=== PATIENT | female | born 1955 | race Caucasian/White ===

== ENCOUNTER 2017-05-28 08:00 | Outpatient (CLI) | payer BC, OTHER ==
[2017-05-28 18:01] LABS: ALBUMIN 4.4 g/dL (3.2-5.5); ALKALINE PHOSPHATASE 46 IU/L (42-121); ALT ALANINE AMINOTRANSFERASE 23 IU/L (10-60); AST ASPARTATE AMINOTRANSFERASE 24 IU/L (10-42); BILIRUBIN,TOTAL 0.3 mg/dL (0.2-1.0); TOTAL PROTEIN 7.7 g/dL (6.7-8.2)
[2017-05-28 18:33] LABS: BILIRUBIN,DIRECT < 0.1 mg/dL (0.1-0.5)
== END 2017-05-28 08:01 | disposition home or self-care (01) ==
LOC: LAB.F 08:00
PROVIDERS: ATTEND Nurse Practitioner
DX: Z79.899 Other long term (current) drug therapy (principal)
CPT/HCPCS: 36415; 80076

== ENCOUNTER 2017-10-15 08:36 | Outpatient (CLI) | payer OTHER ==
--- NOTE | 2017-10-16 10:03 | Mammography Report ---
Procedure Date: 10/15/2017 Accession Number: [id number] / [id number] Procedure: MGS - Screening Mammo Dig Bilat CPT Code: FULL RESULT: EXAM: Screening Mammo Dig Bilat DATE: 10/15/2017 8:52 AM CLINICAL HISTORY: Routine screening TECHNIQUE: Bilateral CC and MLO views were obtained. COMPARISON: 08/05/2014, 07/18/2013, 07/30/2011, 07/09/2011 and 05/21/2010 FINDINGS: There are scattered fibroglandular densities. No significant interval change. No suspicious masses, clustered microcalcifications, skin thickening, or regions of architectural distortion are identified. IMPRESSION: Negative examination RECOMMENDATION: Routine annual screening unless otherwise clinically indicated. BIRADS CATEGORY 1: Negative STANDARD QUALIFYING STATEMENTS: 1. This examination was reviewed with the aid of Computer-Aided Detection (CAD). 2. A negative or benign imaging report should not delay biopsy if clinically suspicious findings are present. Consider surgical consultation if warrented. More than 5% of cancers are not identified by imaging. 3. Dense breasts may obscure an underlying neoplasm.
== END 2017-10-15 08:37 | disposition home or self-care (01) ==
LOC: DI.S 08:36
PROVIDERS: ATTEND Internal Medicine
DX: Z12.31 Encounter for screening mammogram for malignant neoplasm of breast (principal)
CPT/HCPCS: 77067

== ENCOUNTER 2019-01-25 14:20 | Outpatient (CLI) | payer BC ==
--- NOTE | 2019-01-26 07:58 | Mammography Report ---
Reason: SCREENING MAMMO Z12.31 Procedure Date: 01/25/2019 Accession Number: [id number] / [id number] Procedure: MGS - Screening Mammo Dig Bilat CPT Code: FULL RESULT: EXAM: Screening Mammo Dig Bilat DATE: 01/25/2019 2:40 PM CLINICAL HISTORY: Screening TECHNIQUE: (B) - Bilateral CC and MLO views were obtained. COMPARISON: 10/15/2017, 08/06/2015 PARENCHYMAL PATTERN: (A) - The breasts demonstrate scattered fibroglandular densities bilaterally. FINDINGS: There are no suspicious masses, calcifications, or areas of distortion. IMPRESSION: Negative examination. BI-RADS category 1. RECOMMENDATION: (ANNUAL) - Recommend routine annual screening mammography. BI-RADS CATEGORY: (1) - Negative. STANDARD QUALIFYING STATEMENTS: 1. This examination was not reviewed with the aid of Computer-Aided Detection (CAD). 2. A negative or benign imaging report should not preclude biopsy if clinically suspicious findings are present. 3. Dense breasts may obscure an underlying neoplasm. 4. This examination was reviewed without the aid of 3D breast imaging (tomosynthesis).
== END 2019-01-25 14:21 | disposition home or self-care (01) ==
LOC: DI.S 14:20
DX: Z12.31 Encounter for screening mammogram for malignant neoplasm of breast (principal)
CPT/HCPCS: 77067

== ENCOUNTER 2020-06-12 12:51 | Outpatient (CLI) | payer OTHER ==
--- NOTE | 2020-06-13 13:48 | Mammography Report ---
BILATERAL DIGITAL SCREENING MAMMOGRAM 3D/2D: 06/12/2020 CLINICAL: Routine screening. Comparison is made to exams dated: 01/25/2019 mammogram, 10/15/2017 mammogram, 08/06/2015 mammogram, an d 07/18/2013 mammogram - [facility]. The tissue of both breasts is predominantly fa tty. No significant masses, calcifications, or other findings are seen in either breast. There has been no significant interval change. IMPRESSION: NEGATIVE There is no mammographic evidence of malignancy. A 1 year screening mammogram is recommended. This exam was interpreted at Station ID: [id number]. NOTE: For mammograms, a report in lay terms will be sent to the patient. Approximately 15% of breast malignancies will not be visualized mammographically. In the management of a palpable breast mass, a negative mammogram must not discourage biopsy of a clinically suspicious lesion. Electronically Signed By: Venkatesh Valentin acr/penrad:06/12/2020 13:33:32 ACR BI-RADS Category 1: Negative 3341F PARENCHYMAL PATTERN: (F) - The breast(s) demonstrate(s) diffuse fatty replacement. BI-RADS CATEGORY: (1) - 1 RECOMMENDATION: (ANNUAL) - Recommend routine annual screening mammography. [id number] 1 year screening LATERALITY: (B)
== END 2020-06-12 12:52 | disposition home or self-care (01) ==
LOC: DI.S 12:51
PROVIDERS: ATTEND Internal Medicine
DX: Z12.31 Encounter for screening mammogram for malignant neoplasm of breast (principal)

== ENCOUNTER 2020-09-10 11:43 | Emergency (ER) | payer OTHER ==
--- OUTSIDE RECORDS SUMMARY | 2020-09-10 11:46 | EXTERNAL MEDICAL SUMMARY RPT | Continuity of Care Document ---
:1955 Demographics Phone Unavailable Preferred Language Unknown Marital Status Unknown Rastafarian Affiliation Unknown Race Unknown Ethnic Group Unknown Author Organization [place] Address [address] [phone] Phone Care Team Providers Name Role Phone PA-C Unavailable Unavailable Medications date description facility [id number] CELECOXIB All [id number] HYDROCHLOROTHIAZIDE All 20200910 FLUTICASONE FUROATE All 20200910 MONTELUKAST SODIUM All 20200910 ATENOLOL All [id number] BECLOMETHASONE DIPROP HFA All 20200910 BECLOMETHASONE DIPROP HFA All [id number] ATENOLOL All [id number] HYDROCHLOROTHIAZIDE All [id number] FLUTICASONE FUROATE All [id number] CELECOXIB All 20200910 MONTELUKAST SODIUM All Problems date description facility 20200910 Tobacco use and exposure All 20200910 Tobacco smoking status NHIS All [id number] Never smoker All 20200910 Details of drug misuse behavior All 20200910 Concussion, unspecified All 20200910 Concussion without loss of consciousnes s, initial encounter All [id number] Concussion injury of brain All [id number] Alcohol use All 39181429 Alcohol intake All Vital Signs date measurement value source [id number] weight_standard 186 lb 20200910 weight_metric 84.37 kg 20200910 temperature_standard 98.8 F 20200910 temperature_metric 37.11 C 20200910 respiration_rate 16 /min 20200910 height_standard 61 in 20200910 height_metric 154.94 cm [id number] heart_rate 66 /min 20200910 BP_systolic 142 mm[Hg] [id number] BP_diastolic 83 mm[Hg] 20200910 BMI 35.27 kg/m2
--- OUTSIDE RECORDS SUMMARY | 2020-09-10 12:52 | EXTERNAL MEDICAL SUMMARY RPT | Continuity of Care Document ---
:1955 Demographics Phone Unavailable Preferred Language Unknown Marital Status Unknown Bahai Affiliation Unknown Race Unknown Ethnic Group Unknown Author Organization [place] Address [address] [phone] Phone Care Team Providers Name Role Phone Chong ROBERTSON, Unavailable Unavailable Medications date description facility 20200910 CELECOXIB All [id number] HYDROCHLOROTHIAZIDE All 85384636 FLUTICASONE FUROATE All 20200910 MONTELUKAST SODIUM All 20200910 ATENOLOL All 07690091 BECLOMETHASONE DIPROP HFA All 20200910 BECLOMETHASONE DIPROP HFA All 16556301 ATENOLOL All [id number] HYDROCHLOROTHIAZIDE All 24582311 FLUTICASONE FUROATE All 31003339 CELECOXIB All 20200910 MONTELUKAST SODIUM All Problems date description facility 20200910 Tobacco use and exposure All 20200910 Tobacco smoking status NHIS All 49065650 Never smoker All 20200910 Details of drug misuse behavior All 20200910 Concussion, unspecified All 20200910 Concussion without loss of consciousnes s, initial encounter All 75396930 Concussion injury of brain All 20200910 Alcohol use All 49273672 Alcohol intake All Vital Signs date measurement value source 20200910 weight_standard 186 lb 20200910 weight_metric 84.37 kg 20200910 temperature_standard 98.8 F 20200910 temperature_metric 37.11 C 20200910 respiration_rate 16 /min 20200910 height_standard 61 in 20200910 height_metric 154.94 cm 20200910 heart_rate 66 /min 20200910 BP_systolic 142 mm[Hg] 20200910 BP_diastolic 83 mm[Hg] 20200910 BMI 35.27 kg/m2
--- NOTE | 2020-09-10 13:12 | ED Physician Documentation ---
History of Present Illness - Stated complaint Stated Complaint: NAUSEA/HEAD PX - Chief complaint Chief Complaint: Trauma Hd/Nk - History obtained from History obtained from: Patient, Family - History of Present Illness Timing: How many days ago (3) Pain level max: 5 Pain level now: 0 - Additonal information Additional information: Patient is a 65-year-old female who presents to the emergency department after falling and striking her head on a curb 3 days ago. Nothing makes it better or worse. She states she has had some nausea but no vomiting. No loss of consciousness. No seizure activity. Not on blood thinners. She was seen in the walk-in clinic today and sent here for possible head CT. She states she feels like there is a band on the top of her head, but no pain. No neck or back pain. No numbness or tingling. She states it does seem worse when she is looking at a computer screen, better when not looking at a computer screen Review of Systems Ten Systems: 10 systems reviewed and negative Constitutional: denies: Fever, Chills Respiratory: denies: Cough GI: denies: Vomiting, Diarrhea Skin: denies: Rash Musculoskeletal: denies: Neck pain, Back pain Neurologic: denies: Seizure, Confused, LOC PD PAST MEDICAL HISTORY - Past Medical History Past Medical History: Yes Cardiovascular: Hypertension - Present Medications Home Medications: Ambulatory Orders Medication Instructions Recorded Confirmed Beclomethasone 80 Mcg [Qvar 80] 1 puffs PO DAILY 09/10/20 09/10/20 Celecoxib [Celebrex] 1 tab PO DAILY 09/10/20 09/10/20 Chondroitin Sulfate A Sodium 750 mg PO DAILY 09/10/20 09/10/20 [Chondroitin Sulfate] Glucosamine Sulfate [Jennifer] 1 tab PO BID 09/10/20 09/10/20 Hydrochlorothiazide 1 tab PO DAILY 09/10/20 09/10/20 Montelukast [Singulair] 10 mg PO QPM 09/10/20 09/10/20 Multivitamin with Iron 1 tab PO DAILY 09/10/20 09/10/20 [Multivitamins with Iron] [place]-3/Dha/Epa/Fish Oil [Fish Oil 1 tab PO DAILY 09/10/20 09/10/20 1,000 mg Softgel] Ondansetron Odt [Zofran] 4 mg TL Q6H PRN #10 tablet 09/10/20 atenoloL [Tenormin] 1 tab PO DAILY 09/10/20 09/10/20 - Allergies Allergies/Adverse Reactions: Allergies Allergy/AdvReac Type Severity Reaction Status Date / Time aspirin Allergy Unknown Verified 09/10/20 12:00 ibuprofen Allergy Respiratory Verified 09/10/20 12:00 Sulfa (Sulfonamide Allergy Unknown Verified 09/10/20 12:00 Antibiotics) - Living Situation Living Situation: reports: With family Living Arrangement: reports: At home PD ED PE NORMAL - Vitals Vital signs reviewed: Yes - General General: Alert and oriented X 3, No acute distress - HEENT HEENT: Atraumatic, PERRL, Moist mucous membranes - Neck Neck: Supple, no meningeal sign, No bony TTP - Cardiac Cardiac: RRR, Strong equal pulses - Respiratory Respiratory: No respiratory distress, Clear bilaterally - Abdomen Abdomen: Soft, Non tender, Non distended - Back Back: No spinal TTP - Derm Derm: Warm and dry - Neuro Neuro: Alert and oriented X 3, 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, No motor deficit, No sensory deficit, Normal speech Eye Opening: Spontaneous Motor: Obeys Commands Verbal: Oriented GCS Score: 15 - Psych Psych: Normal mood, Normal affect Results - Vitals Vitals: Vital Signs - 24 hr 09/10/20 09/10/20 12:01 13:53 Temperature 36.7 C Heart Rate 64 59 L Respiratory 18 14 Rate Blood Pressure 179/88 H 139/82 H O2 Saturation 97 97 Oxygen O2 Source Room air - Rads (name of study) head CT Radiology: Prelim report reviewed, EMP read contemporaneously, See rad report (No acute intracranial abnormality) PD MEDICAL DECISION MAKING - ED course Complexity details: reviewed results, re-evaluated patient, considered differential, d/w patient, d/w family ED course: No acute findings on head CT. Patient with likely concussion. Will prescribe Zofran for home. Head injury precautions given at bedside. Patient and family counseled regarding signs and symptoms for which I believe and urgent re- evaluation would be necessary. Patient with good understanding of and agreement to plan and is comfortable going home at this time This document was made in part using voice recognition software. While efforts are made to proofread this document, sound alike and grammatical errors may occur. Departure - Departure Disposition: 01 Home, Self Care Clinical Impression: Concussion Qualifiers: Encounter type: initial encounter Loss of consciousness presence/duration: without LOC Qualified Code(s): S06.0X0A - Concussion without loss of consciousness, initial encounter Condition: Good Instructions: ED Concussion Follow-Up: ANDERSON HERNANDEZ MD [Primary Care Provider] - Within 1 week Prescriptions: Ondansetron Odt [Zofran] 4 mg TL Q6H PRN #10 tablet PRN Reason: Nausea / Vomiting Comments: Follow-up with your doctor for further care. Your head CT does not show any acute abnormalities. Avoid TV screens, phone screens and computer screens as much as possible as these may worsen your headaches and symptoms. Return if you worsen. Do not drive or operate heavy machinery until cleared by your doctor. Discharge Date/Time: 09/10/20 14:54
[2020-09-10 13:53] VITALS: BP 139/82
--- NOTE | 2020-09-10 14:38 | CT Report ---
PROCEDURE: HEAD WO INDICATIONS: fall, head injury TECHNIQUE: Noncontrast 4.5 mm thick angled axial sections acquired from the foramen magnum to the vertex. For r adiation dose reduction, the following was used: automated exposure control, adjustment of mA and/or kV according to patient size. COMPARISON: None. FINDINGS: Image quality: Excellent. CSF spaces: Basal cisterns are patent. No extra-axial fluid collections. Ventricles are normal in size and shape. Brain: No midline shift. No intracranial masses or hemorrhage. Espinosa-white matter interface is norm al. Skull and face: Calvarium and visualized facial bones are intact, without suspicious lesions. Sinuses: Bilateral maxillary sinus mucosal thickening. Mucous retention cyst in the right sphenoid si nus. IMPRESSION: No acute intracranial normality. Reviewed by: Jeff Romero MD on 09/10/2020 2:37 PM PDT Approved by: Jeff Romero MD on 09/10/2020 2:37 PM PDT Station ID: [id number]
== END 2020-09-10 14:54 | disposition home or self-care (01) ==
LOC: ED 11:43
DX: S06.0X0A Concussion without loss of consciousness, initial encounter (principal); W01.198A Fall on same level from slipping, tripping and stumbling with subsequent striking against other object, initial encounter; I10 Essential (primary) hypertension
CPT/HCPCS: 99284

== ENCOUNTER 2023-01-28 08:53 | Outpatient (CLI) | payer MEDICARE ==
--- NOTE | 2023-01-29 11:17 | Mammography Report ---
BILATERAL DIGITAL SCREENING MAMMOGRAM 3D/2D: 01/28/2023 CLINICAL: Routine screening. Family history of breast cancer. Comparison is made to exams dated: 12/04/2021 mammogram, 06/12/2020 mammogram, 01/25/2019 mammogram, mammogram, and 08/06/2015 mammogram - [facility]. Both breasts are almost entirely fatty (category a/<25% glandular tissue). No significant masses, calcifications, or other findings are seen in either breast. There has been no significant interval change. IMPRESSION: NEGATIVE There is no mammographic evidence of malignancy. A 1 year screening mammogram is recommended. Based on the Tyrer Cuzick model (a risk assessment model) the patients lifetime risk is 8.2% and her 10 year risk is 4.1%. According to the ACR, ACS, and NCCN guidelines, an annual breast MRI exam joanne g with mammogram is recommended if the patients lifetime risk is 20% or greater. This exam was interpreted at Station ID: [id number]. NOTE: For mammograms, a report in lay terms will be sent to the patient. Approximately 15% of breast malignancies will not be visualized mammographically. In the management of a palpable breast mass, a negative mammogram must not discourage biopsy of a clinically suspicious lesion. Electronically Signed By: Venkatesh rubi/josé miguel:01/28/2023 13:25:28 letter sent: No_Letter ACR BI-RADS Category 1: Negative 3341F PARENCHYMAL PATTERN: (F) - The breast(s) demonstrate(s) diffuse fatty replacement. BI-RADS CATEGORY: (1) - 1 Mammogram [id number] 1 year screening LATERALITY: (B)
== END 2023-01-28 08:54 | disposition home or self-care (01) ==
LOC: DI.S 08:53
PROVIDERS: ATTEND Family Medicine
DX: Z12.31 Encounter for screening mammogram for malignant neoplasm of breast (principal)

== ENCOUNTER 2023-06-19 13:34 | Outpatient (CLI) | payer MEDICARE ==
--- NOTE | 2023-06-19 15:40 | XRAY Report ---
PROCEDURE: Shoulder 2+V RT INDICATIONS: RIGHT SHOULDER PAIN TECHNIQUE: 3 views of the shoulder were acquired. COMPARISON: None. FINDINGS: Bones: No fractures or dislocations. No suspicious bony lesions. Visualized ribs appear intact. Acromioclavicular joint space narrowing and osteophytosis. Soft tissues: No suspicious soft tissue calcifications. The visualized lungs are within normal limi ts. IMPRESSION: No acute bony abnormality. Moderate acromioclavicular osteoarthritis. Reviewed by: Finesse Yost MD on 06/19/2023 3:39 PM PST Approved by: Finesse Yost MD on 06/19/2023 3:39 PM PST Station ID: [id number]
== END 2023-06-19 13:35 | disposition home or self-care (01) ==
LOC: DI 13:34
PROVIDERS: ATTEND Nurse Practitioner
DX: M19.011 Primary osteoarthritis, right shoulder (principal)